=== PATIENT | male | born 1960 | race Caucasian/White ===

== ENCOUNTER 2020-07-26 11:23 | Outpatient (CLI) | payer OTHER, SELFPAY ==
--- NOTE | ~2020-07-26 | MR_ITS ---
EXAMINATION: MR lumbar spine wo/w con EXAM DATE: 07/26/2020 13:25 INDICATION: Lumbar radiculopathy. TECHNIQUE: Multi-sequential, multiplanar MR images of the lumbar spine were obtained without contrast . Sagittal T1, T2, T2 fat saturation images. Axial T2 weighted images. Axial T1 weighted sequence. Patient was then injected with 20 mL Multihance intravenous contrast and reimaged. Postcontrast axi al and sagittal T1-weighted fat saturation sequences were obtained. FINDINGS: Posterior fusion and laminectomies at L3-4. Patient may have had discectomy at that level w ith moderate to severe loss of the disc height. There is moderate disc disease L5-S1 with 5 mm retrol isthesis. The conus medullaris terminates at the L1 level and has normal signal intensity and morphol ogy. There are no suspicious marrow signal abnormalities. Paraspinal soft tissue is unremarkable. Th ere are no areas of abnormal enhancement on the post contrast images. Level by level evaluation: L1-L2: Disc does not extend beyond the endplate margin. Facet arthropathy: Mild to moderate. Neural foraminal stenosis: No stenosis. Central canal stenosis: No stenosis. L2-L3: There is a mild diffuse disc bulge. Facet arthropathy: Mild to moderate. Neural foraminal stenosis: Mild to moderate left, mild right. Central canal stenosis: No stenosis. L3-L4: There is a moderate diffuse disc bulge. Facet arthropathy: Moderate. Neural foraminal stenosis: Moderate right, mild to moderate left. Central canal stenosis: Posterior decompression. L4-L5: There is a moderate diffuse disc bulge. Facet arthropathy: Severe. Neural foraminal stenosis: Moderate to severe left, moderate right. Central canal stenosis: Mild to moderate. L5-S1: There is a large diffuse disc bulge, with superimposed large left central extrusion. Facet arthropathy: Mild to moderate. Neural foraminal stenosis: Moderate to severe bilateral. Central canal stenosis: Moderate to severe, particularly left lateral recess. IMPRESSION: 1. L5-S1 grade 1 retrolisthesis, large disc bulge and left central extrusion causing moderate to sev ere central canal stenosis. This could be affecting traversing left S1 nerve root. 2. Surgical changes L3-4. 3. Spondylosis as above. Reviewed, dictated and finalized at location B. IMPRESSION: 1. L5-S1 grade 1 retrolisthesis, large disc bulge and left central extrusion c ausing moderate to severe central canal stenosis. This could be affecting trave rsing left S1 nerve root. 2. Surgical changes L3-4. 3. Spondylosis as above.
[2020-07-26 12:18] LABS: Estimated Glomerular Filt Rate 48
== END 2020-07-26 11:24 | disposition home or self-care (01) ==
PROVIDERS: PCP Internal Medicine; Visit Provider Chiropractor
DX: M47.26 Other spondylosis with radiculopathy, lumbar region (principal)
CPT/HCPCS: 72158; A9577

== ENCOUNTER 2022-11-07 08:40 | Outpatient (CLI) | payer OTHER, SELFPAY ==
[2022-11-07 20:09] LABS: Hemoglobin A1C 6.5 % (<5.7)
[2022-11-07 21:40] LABS: Alanine Aminotransferase 28 U/L (6-50); Albumin Level 4.5 g/dL (3.5-5.1); Alkaline Phosphatase 57 U/L (38-126); Anion Gap 6 mmol/L (8-16); Aspartate Amino Transferase 37 U/L (17-59); Bilirubin,Total 0.9 mg/dL (0.2-1.3); Blood Urea Nitrogen 28 mg/dL (9-20); Calcium 9.3 mg/dL (8.4-10.2); Carbon Dioxide 29 mmol/L (22-30); Chloride 101 mmol/L (98-107); Cholesterol 259 mg/dL (0-200); Estimated Glomerular Filt Rate 48; Glucose 108 mg/dL (65-110); HDL Direct 46 mg/dL; Potassium 5.5 mmol/L (3.4-5.0); Sodium 136 mmol/L (137-145); Triglycerides 123 mg/dL (<150)
[2022-11-07 21:51] LABS: LDL Cholesterol Direct 154 mg/dL
== END 2022-11-07 08:41 | disposition home or self-care (01) ==
LOC: ANHGOSHLAB 08:42
PROVIDERS: PCP Family Medicine; Visit Provider Family Medicine
DX: E11.9 Type 2 diabetes mellitus without complications (principal); E78.5 Hyperlipidemia, unspecified; I10 Essential (primary) hypertension
CPT/HCPCS: 36415; 80053; 80061; 83036

== ENCOUNTER 2022-11-23 08:20 | Outpatient (CLI) | payer OTHER, SELFPAY ==
[2022-11-23 20:32] LABS: Potassium 5.4 mmol/L (3.4-5.0)
== END 2022-11-23 08:21 | disposition home or self-care (01) ==
LOC: ANHGOSHLAB 08:22
PROVIDERS: PCP Family Medicine; Visit Provider Nurse Practitioner
DX: E87.5 Hyperkalemia (principal)
CPT/HCPCS: 36415; 84132

== ENCOUNTER 2023-09-25 07:55 | Outpatient (CLI) | payer OTHER, SELFPAY ==
[2023-09-25 19:43] LABS: Basophils Percent Auto 0.3 % (0.2-1.2); Eosinophils Absolute Auto 0.3 K/mm3 (0-0.3); Eosinophils Percent Auto 4.5 % (0-4.4); Hematocrit 43.2 % (42.0-52.0); Hemoglobin 13.6 g/dL (14.0-18.0); Immature Granulocyte Absolute 0.02 K/mm3 (0.00-0.031); Immature Granulocyte Percent A 0.3 % (0-0.5); Lymphocytes Absolute Auto 0.72 K/mm3 (0.9-3.2); Lymphocytes Percent Auto 12.4 % (18.3-44.2); Mean Corpuscular HGB Conc 31.5 g/dl (32-36); Mean Corpuscular Hemoglobin 30.5 pg (26-34); Mean Corpuscular Volume 96.9 fl (80-100); Mean Platelet Volume 10.4 fl (7.4-10.4); Monocytes Absolute Auto 0.4 K/mm3 (0.1-0.6); Monocytes Percent Auto 6.7 % (2.6-8.5); Neutrophils Absolute Auto 4.4 K/mm3 (1.3-6.7); Neutrophils Percent Auto 75.8 % (45.5-73.1); Platelet Count Result 176 k/mm3 (150-375); Red Blood Count 4.46 M/mm3 (4.6-6.20); Red Cell Distribution Width 12.8 % (11.5-14.5); White Blood Count 5.8 K/mm3 (4.5-10.0)
[2023-09-25 20:54] LABS: MALB Creatinine Ratio 15.1 mg/g (0-30); Microalbumin Urine Random 7.7 mg/L (0-16.7)
[2023-09-25 21:28] LABS: Alanine Aminotransferase 30 U/L (6-50); Albumin Level 4.5 g/dL (3.5-5.1); Alkaline Phosphatase 62 U/L (38-126); Anion Gap 11 mmol/L (8-16); Aspartate Amino Transferase 37 U/L (17-59); Bilirubin,Total 0.9 mg/dL (0.2-1.3); Blood Urea Nitrogen 31 mg/dL (9-20); Calcium 9.5 mg/dL (8.4-10.2); Carbon Dioxide 28 mmol/L (22-30); Chloride 99 mmol/L (98-107); Cholesterol 215 mg/dL (0-200); Estimated Glomerular Filt Rate 47; Glucose 144 mg/dL (65-110); HDL Direct 42 mg/dL; Potassium 4.4 mmol/L (3.4-5.0); Sodium 138 mmol/L (137-145); Triglycerides 130 mg/dL (<150)
[2023-09-25 21:39] LABS: LDL Cholesterol Direct 133 mg/dL
[2023-09-25 23:00] LABS: Hemoglobin A1C 6.5 % (<5.7)
[2023-09-29 15:41] LABS: Vitamin D 1,25 (OH)2 Total 26 pg/mL (18-72); Vitamin D2 1,25 (OH)2 <8 pg/mL; Vitamin D3 1,25 (OH)2 26 pg/mL
[2023-09-29 21:14] LABS: PSA, Free 1.22 ng/mL; PSA, Total 3.3 ng/mL (<=4.0); Percent Free Prostate Spec Ag 37 % (>25)
== END 2023-09-25 07:56 | disposition home or self-care (01) ==
LOC: ANHGOSHLAB 07:56
PROVIDERS: PCP Family Medicine; Visit Provider Nurse Practitioner Family
DX: I10 Essential (primary) hypertension (principal); Z00.00 Encounter for general adult medical examination without abnormal findings; E55.9 Vitamin D deficiency, unspecified; Z12.5 Encounter for screening for malignant neoplasm of prostate; E11.9 Type 2 diabetes mellitus without complications
CPT/HCPCS: 36415; 80053; 80061; 82043; 82607; 82652; 83036; 84153; 84154; 84443; 85025

== ENCOUNTER 2024-10-14 07:39 | Outpatient (CLI) | payer OTHER, SELFPAY | END 2024-10-14 07:40 | disposition home or self-care (01) | PROVIDERS: PCP Family Medicine; Visit Provider Student in an Organized Health Care Education/Training Program | DX: H90.3 Sensorineural hearing loss, bilateral (principal) | CPT/HCPCS: 92557; 92567 ==

== ENCOUNTER 2025-01-26 06:37 | Outpatient (CLI) | payer OTHER, SELFPAY ==
--- NOTE | ~2025-01-26 | MR_ITS ---
EXAMINATION: MR brain IAC wo/w con DATE: 01/26/2025 08:42 INDICATION: Asymmetrical hearing loss. TECHNIQUE: Magnetic resonance imaging (MRI) of the brain, brainstem, and internal auditory canals was performed without and with 20 mL ProHance intravenous contrast. COMPARISON: None. FINDINGS: There are scattered areas of nonspecific increased T2-weighted signal intensity in the cere bral white matter, which is within normal limits for the patient's age. There is no intracranial hemo rrhage, acute infarction, or abnormal intracranial mass lesion. The ventricles are normal in size. Th e paranasal sinuses are clear. The orbits are normal. The internal auditory canals, inner ears, tympa flakito cavities, and mastoid air cells are normal. IMPRESSION: 1. Normal aging brain. Reviewed, dictated and finalized at location A. IMPRESSION: 1. Normal aging brain.
--- OUTSIDE RECORDS SUMMARY | 2025-01-26 06:44 | XMS_ITS | Referral Summary ---
Author Organization [facility] C Address [address] [place] [address] Care Team Providers Care House Carpenter Name Role Phone Robe Tomlinson MD Primary Care Provider [phone] Allergies No known active allergies Medications lisinopriL (PRINIVIL,ZESTR IL) 40 mg tablet Take 40 mg by mouth daily Active simvastatin (ZOCOR) 20 mg tablet Take 20 mg by mouth nightly Active pioglitazone (ACTOS) 15 mg tabletIndicatio ns:type 2 diabetes mellitus Take 15 mg by mouth daily Active metFORMIN (GLUCOPHAGE) 500 mg tablet Take 500 mg by mouth 2 (two) times a day with meals Active hydroCHLOROthia zide (HYDRODIURIL) 25 mg tablet Take 25 mg by mouth daily Active cyclobenzaprine (FLEXERIL) 10 mg tablet Take 10 mg by mouth 3 (three) times a day as needed for muscle spasms Active naproxen (NAPROSYN) 500 mg tablet Take 500 mg by mouth 2 (two) times a day with meals Active multivitamin capsule Take 1 capsule by mouth daily Active Active Problems Problem Noted Date Diagnosed Date HNP (herniated nucleus pulposus), lumbar 020 Assessment & Plan (07/27/2020 3:38 PM CDT): Mr. Fonseca presents with herniated disc of L5-S1. The above findings along with the MRI lumbar spine was reviewed with Dr. Scott who recommends L5-S1 Left Microdiscectomy pending weight loss. Patient has a BMI of 48 and history of diabetes. In order to avoid complications, he ideally needs to lose about 100 lbs to be a surgical candidate. Advised patient to discuss professional weight loss options with PCP. MRI CD returned to the patient. Cervicalgia 06/10/2012 Osteoarthritis of cervical spine 01/17/2010 Social History Tobacco Use Types Packs/Day Years Used Date Smoking Tobacco: Never Smokeless Tobacco: Never Alcohol Use Standard Drinks/Week Comments Never 0 (1 standard drink = 0.6 oz pur e alcohol) AUDIT-C Answer Date Recorded Q1: How often do you have a drink containing alc ohol? 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 Gender Identity Not on file Sexual Orientation Not on file Occupation Industry Job Start Date Job End Date Retired Not on file Not on file Not on file Last Filed Vital Signs Vital Sign Reading Time Taken Comments Blood Pressure 149/74 07/27/2020 2:27 PM CDT Pulse 67 07/27/2020 2:27 PM CDT Temperature - - Respiratory Rate 12 07/27/2020 2:27 PM CDT Oxygen Saturation - - Inhaled Oxygen Concentration - - Weight 157.4 kg (347 lb) 07/27/2020 2:27 PM CDT Height 180.3 cm (5' 11 ) 07/27/2020 2:27 PM CDT Body Mass Index 48.4 07/27/2020 2:27 PM CDT Plan of Treatment Not on file Insurance [address] [place] [address] [employer] Care Teams House Carpenter Relationship Specialty Start Date End Date Robe Tomlinson MD [address] [place] [address] PCP - General Internal Medicine 07/27/20
--- OUTSIDE RECORDS SUMMARY | 2025-01-26 06:44 | XMS_ITS | Clinical Summary ---
Author Organization [facility] C Address [address] [place] [address] Care Team Providers Care Peanut Sorter Name Role Phone Robe Tomlinson MD Primary Care Provider [phone] Allergies No known active allergies Medications lisinopriL [...] Cervicalgia 06/10/2012 Osteoarthritis of cervical spine 01/17/2010 Surgical History Surgery Date Site/Laterality Comments CYST REMOVAL Cyst removal from head- 1967 or 1968 APPENDECTOMY 11/05/1980 - 11/04/1981 ELBOW SURGERY 11/05/1982 - 11/04/1983 BACK SURGERY 11/05/2013 - 11/04/2014 Dr [facility] SPINAL FUSION 11/05/2007 [facility] Medical History Medical History Date Comments Diabetes (HCC) Sleep apnea Hypertension Sinus problem Social History Tobacco Use Types Packs/Day Years [...] on file Legal 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
== END 2025-01-26 06:38 | disposition home or self-care (01) ==
PROVIDERS: PCP Family Medicine; Visit Provider Otolaryngology
DX: H91.8X3 Other specified hearing loss, bilateral (principal)
CPT/HCPCS: 70553; A9579